=== PATIENT | female | born 1995 | race African-American/Black ===

== ENCOUNTER 2018-03-07 12:02 | Emergency (ER) | payer OTHER ==
[~2018-03-07] VITALS: Ht 167.6 cm; Wt 79.4 kg
[2018-03-07] MEDS ORDERED: METHYLPREDNISOLONE SOD SUCC 40 MG/ML VIAL IV ONE (12:45)
[2018-03-07] MEDS ORDERED: ALBUTEROL SULF 0.083% NEB SOLN 3 ML NEB NEB ONE (12:45)
[2018-03-07] MEDS ORDERED: PREDNISONE20 MG PO (13:33)
[2018-03-07] MEDS ORDERED: ALBUTEROL0.63 MG/3 INH (13:33)
[2018-03-07] MEDS ORDERED: PROAIR HFA INH8.5 GM PO (13:33)
== END 2018-03-07 13:57 | disposition home or self-care (01) ==
LOC: FSED 12:02
DX: R07.89 Other chest pain (principal); J45.21 Mild intermittent asthma with (acute) exacerbation
CPT/HCPCS: 80053; 80307; 81003; 81025; 82553; 83880; 84484; 85025; 85610; 93005; 99284; J2920